=== PATIENT | male | born 1955 | race Caucasian/White ===

== ENCOUNTER → 2017-07-01 | Outpatient (CLI) | payer OTHER ==
--- NOTE | 2017-07-02 10:16 | CT ---
EXAM DESCRIPTION: Chest w/o Contrast CLINICAL HISTORY: MASS COMPARISON: None available TECHNIQUE: Chest CT was performed without IV contrast. This exam was performed according to our departmental dose-optimization program, which includes automated exposure control, adjustment of the mA and/or kV according to patient size and/or use of iterative reconstruction technique. FINDINGS: The thyroid and thoracic inlet are unremarkable. No thoracic aortic aneurysm. Limited sensitivity for detection of adenopathy due to lack of IV contrast, but no mediastinal or hilar adenopathy is seen. Surgical clips are noted in the epigastric region. Is no hiatal hernia or esophageal wall thickening. The central airways are clear. Emphysematous changes are noted. There is no airspace consolidation or lung mass. No suspicious lung nodule is identified. Visualized portions of the upper abdomen show postoperative changes but are otherwise unremarkable for noncontrast technique. No concerning bone lesion. IMPRESSION: Emphysema, but no evidence of lung mass. Electronically signed by: Jayy Patino MD 07/02/2017 10:[address] [facility]
== END | disposition home or self-care (01) ==
LOC: CT 10:35
PROVIDERS: ATTEND Nurse Practitioner
DX: R22.2 Localized swelling, mass and lump, trunk (principal)

== ENCOUNTER → 2018-03-18 | Outpatient (CLI) | payer OTHER ==
--- NOTE | 2018-03-18 19:14 | CT ---
Procedure: LOW DOSE CT CHEST LUNG CANCER SCREENING WITHOUT IV CONTRAST Exam Date: 03/18/2018. Ordering Provider: Akshat Rosenbaum Clinical Indication: LUNG CANCER SCREENING This patient meets eligibility criteria for low-dose CT lung cancer screening. Comparison: Chest CT scan without contrast 07/01/2017. Technique: Using a multislice scanner, sequential helical axial imaging was obtained in the thorax, 2.5 mm thickness, 2.5 mm separation, from the level of the thoracic inlet through the lung bases without IV contrast. A low dose protocol was utilized. CTDI: 1.76 mGy. 120. kVp. 45 mA. 2D MIP sagittal and coronal reconstructed images, 6.0 mm thickness, were obtained. This exam was performed according to our departmental dose optimization program which includes use of automated exposure control, adjustment of the mA and/or kV according to patient size and/or use of iterative reconstruction technique. FINDINGS: Lungs and large airways: Bilateral multiple emphysematous blebs in a centrilobular pattern more prevalent in the upper lung rolle decreasing toward the the base of the lungs bilaterally. Bilateral perihilar peribronchial wall cuffing with atelectasis more prevalent in the lower lobes left more than right with minimal honeycombing lung in the superior segment and medial basal segment of the left lower lobe. Parenchymal scarring in the inferior lingula. Solid nodule in the anterior costophrenic angle of the base of the right middle lobe with mean diameter 5 mm (image 122. Not well seen on the prior study which may be due to technique. Parenchymal scarring in the medial base of the right lower lobe is stable. Parenchymal scarring and pleural thickening stable in the inferior lingula. Less than 3 mm solitary calcified nodule in the inferior lingula on axial image 113. Pleura: Stable bilateral apical thickening. Also intermittent scattered bilateral thickening is unchanged. No effusion or pneumothorax. Mediastinum and alia: Limited due to noncontrast screening technique but no asymmetric or gross soft tissue masses. No calcifications. Heart and great vessels: Coronary artery calcifications. Atherosclerotic calcifications in the aortic arch and the descending thoracic aorta. Surgical clips abutting the distal esophagus above the GE junction. Chest wall, lower neck, axillae: No gross soft tissue masses. Thyroid gland not well seen. Upper abdomen: Surgical clips at the GE junction and abutting the undersurface of the stomach. 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 Surgical clips in the vicinity of the transverse colon and duodenum. Partial visualization of the pancreas. No free fluid in the peritoneal cavity. Bones: Spondylosis at multiple levels of the thoracic spine. No thoracic compression type vertebral body abnormalities. Minimal arthrosis right glenohumeral joint. IMPRESSION: 1. 5 mm nodule versus pleural scarring in the base of the right middle lobe at the anterior costophrenic angle. Not well seen on the prior study but this may be due to technique. Please see recommendations below.* 2. Centrilobular emphysema more severe in the upper lung rolle and decreasing in severity toward the bases. Stable bilateral mild/moderate bronchiectasis and stable scarring in minimal honeycombing in the left infrahilar lung. *Lung RADS category Category 2 - Nodules with a very low likelihood (less than 1%) of becoming a clinically active cancer due to size or lack of growth. Nodules: Solid or part solid nodule(s) less than 6mm, new solid nodule less than 4mm. Ground glass nodule(s) less than 20mm or unchanged or slow growing ground glass nodule 20mm or greater. Cat 3 or 4 nodule unchanged for 3 or more months. Follow-up: Continue annual screening with a Low Dose Chest CT in 12 months for re-evaluation. Electronically signed by: Gulshan Mayo MD 03/18/2018 3:21 PM CDT
== END ==
LOC: CT 13:30
PROVIDERS: ATTEND Family Medicine
DX: Z87.891 Personal history of nicotine dependence (principal)

== ENCOUNTER → 2019-04-20 | Outpatient (CLI) | payer OTHER ==
--- NOTE | 2019-04-21 14:57 | CT ---
Procedure: CT LUNG SCREENING Exam Date: 04/20/2019 Ordering Provider: Josh Guzman Clinical Indication: PERSONAL HISTORY OF TOBACCO USE smoking cessation 18 months. 40 pack years smoking. This patient meets eligibility criteria for low-dose CT lung cancer screening. Comparison: March 18, 2018 Technique: Using a multislice scanner, sequential helical axial imaging was obtained in the thorax, 2.5 mm thickness, 2.5 mm separation, from the level of the thoracic inlet through the lung bases without IV contrast. A low dose protocol was utilized for BMI less than 30: BMI: 19.2. CTDI: 1.76 mGy. 120. kVp. 45 mA. DLP 71.1 mGy-centimeters. 2D sagittal and coronal reconstructed images, 6.0 mm thickness, were obtained. This exam was performed according to our departmental dose optimization program which includes use of automated exposure control, adjustment of the mA and/or kV according to patient size and/or use of iterative reconstruction technique. Nodule measurements under 10 mm are given as mean value of 3 axes diameters. FINDINGS: Lungs and large airways: Multiple bilateral uniform blebs in the upper lobe lung parenchyma with uniform distribution almost as numerous in the bilateral lower lobes. On axial series 2 images 93-104 is a solid mass with spiculated and lobulated margins in the medial segment of the inferior right middle lobe. Extensions of the mass. The anterior and medial pleura, and the inferior medial major fissure with atelectasis. No calcifications associated with the mass. The larger mass is not present on the prior study and most likely a primary lung malignancy. The nodule seen on the prior study consistent with pleural thickening on this study. Pleural parenchymal scarring in the inferior lingula right upper lobe and bilateral lower lobes. Aminah-fissural nodule abutting the posterior right upper lobe in the superior left major fissure. New, 5 mm semisolid nodule in the upper lateral lingula subpleural location on image 83 and 84. No other new nodules. No new focal infiltrates.. Pleura and space: Increased pleural thickening medially, right middle lobe, abutting the mass. Multifocal bilateral pleural thickening including the apices. No effusion or pneumothorax. Mediastinum and alia: evaluation limited by low dose technique and lack of IV contrast. No enlarged lymph nodes in the mediastinum. Surgical clips abutting the GE junction inferior mediastinum. Heart and great vessels: Coronary artery atherosclerotic calcifications and stents. Atherosclerotic calcifications in the aorta. Chest wall, lower neck, axillae: Evaluation also limited by same factors as described above. Limited by minimal amount of fatty subcutaneous tissue. Upper abdomen: Evaluation limited by low-dose technique. No free air or fluid in the included peritoneal space. Fatty pancreas. Bariatric surgical hardware partially visualized. Included adrenal glands normal size and density. Osseous structures: Evaluation limited by low dose MIP technique. Minimal spondylosis. No lytic or blastic lesions. IMPRESSION: *Lung RADS category Category 4B - Very Suspicious - findings for which additional diagnostic testing and/or tissue sampling is recommended (greater than 15% malignancy probability). Nodules: Solid nodule(s) 15mm (1767.1 mm3) or larger at baseline, OR new or growing, and 8mm (268.1 mm3) or larger solid nodule. Part solid nodule(s) with a solid component 8 mm (268.1 mm3) or greater, OR with a new or growing 4mm (33.5 mm3) or larger solid component. Follow-up: Please return for chest CT with or without contrast, PET/CT and/or tissue sampling depending on the "probability of malignancy and comorbidities." PET/CT may be used when there is an 8-mm or greater solid component. CRITICAL COMMUNICATION: The critical value was discussed directly by phone by Dr. Mayo, with Ms. Tamika Neville, RN, MSN, Nurse Navigator for Dr. Guzman, at [facility] at approximately 1415 hours, on 04/21/2018 Electronically signed by: Gulshan Mayo MD 04/21/2019 2:55 PM CDT
== END ==
LOC: CT 10:00
PROVIDERS: ATTEND Family Medicine
DX: Z87.891 Personal history of nicotine dependence (principal); R91.1 Solitary pulmonary nodule

== ENCOUNTER → 2019-11-14 | Outpatient (CLI) | payer OTHER ==
--- NOTE | 2019-11-14 15:53 | CT ---
EXAM DESCRIPTION: Chest w/o Contrast : Computed Tomography. CLINICAL HISTORY: 64 years Male LUNG NODULE. Medial right middle lobe. Smoking cessation x 1-1/2 years. 50 pack-years cigarette smoking. COMPARISON: Low-dose CT lung cancer screening study March 2019. TECHNIQUE: Spiral-axial scans at 5 x 5 mm intervals through the lungs and thorax without IV contrast. 2.5 x 5 mm lung algorithm axial reconstructions. : Sagittal 2.0 Mm reconstructions. Total Exam DLP: 271 mGy-cm. This exam was performed according to our departmental dose-optimization program which includes automated exposure control, adjustment of the mA and/or kV according to patient size and/or use of iterative reconstruction technique; to reduce radiation dose to as low as reasonably achievable (ALARA). Nodule measurements under 10 mm are given as mean value of 3 axes diameters. FINDINGS: Lungs and large airways: Compared to the prior study, the spiculated mass in the medial aspect of the inferior right middle lobe is no longer visualized with only parenchymal scarring remaining with small extensions to the anterior and medial pleura. Bilateral multiple blebs in a centrilobular pattern more prevalent in the upper lung rolle. Posterior nodule with lobulated margins in the medial aspect of the posterior recess of the left lower lobe abutting the posterior pleura and the diaphragmatic pleura, measuring approximately 10 mm mean diameter. Axial series 4, image 120-122. Increase in pleural parenchymal scarring in the medial aspect of the right lower lobe abutting the paraspinal pleura in the medial right hemidiaphragm pleura (images 4/116-122.) Pleural spaces: Bilateral focal thickening is noted. No effusion or pneumothorax. Mediastinum and Jamee: Evaluation limited due to lack of IV contrast no enlarged lymph nodes or dominant soft tissue masses. Great vessels and Heart: Evaluation limited due to lack of IV contrast. Atherosclerotic calcifications in the aorta and coronary artery calcifications stable. Soft tissues of neck base, axillae, and chest wall: Evaluation limited due to lack of IV contrast. Negative. Upper abdomen: No free air or free fluid in the included peritoneal space. Moderate fecal matter in the included colon. Surgical clips gastroesophageal region and patellofemoral: The region along with gastrojejunal bypass also seen on the prior study. No complications. Colonic diverticulosis. Osseous structures: Spondylosis at multiple levels of the thoracic spine. Bilateral sternoclavicular and glenohumeral arthrosis. IMPRESSION: 1. Spiculated mass/density in the right middle lobe is no longer visualized and presumed to have been excised. Interval 10 mm mass density with lobulated margins medial aspect of the posterior recess of the left lower lobe. No other new nodules. Stable emphysematous changes bilaterally. Stable scarring bilaterally. 2. [facility] Best Practice guidelines utilizing lung RADS classification: CATEGORY 4A- Findings for which additional diagnostic testing and/or tissue sampling is recommended (5 - 15% malignancy probability). Nodules: 1. Solid nodule(s): 8 to < 15 mm ( 268.1 to < 1767.1 mm3) at baseline OR growing < 8 mm (< 268.1 mm3) OR new 6 to < 8 mm (113.1 to < 268.1 mm3). 2. Part solid nodule(s): 6 mm ( 113.1 mm3) with solid component 6 mm to < 8 mm ( 113.1 to < 268.1 mm3) OR with a new or growing < 4 mm (< 33.5 mm3) solid component. 3. Endobronchial nodule FOLLOW-UP: Please return for 3 month LDCT; PET/CT may be used when there is a 8 mm ( 268.1 mm3) solid component. Risk of malignancy: 515%. Estimated population prevalence: 2%. Electronically signed by: Gulshan Mayo MD 11/14/2019 3:51 PM CDT
== END ==
LOC: CT 10:24
PROVIDERS: ATTEND Family Medicine
DX: Z87.891 Personal history of nicotine dependence (principal); R91.1 Solitary pulmonary nodule

== ENCOUNTER → 2020-08-01 | Outpatient (CLI) | payer OTHER ==
--- NOTE | 2020-08-01 12:27 | CT ---
Procedure: CT LUNG W/O CONTRAST, LOW DOSE FOLLOW-UP Exam Date: August 01, 2020 Ordering Provider: Josh Guzman Clinical Indication: lung nodule and former smoker current cigarette smoker. 50 pack years. This patient meets eligibility criteria for low-dose CT lung cancer screening. Comparison: Chest CT scan without contrast October 2019. Low-dose CT lung cancer screening examination March 2019; assessment: Lung rads 4B. Technique: Using a multislice scanner, sequential helical axial imaging was obtained in the thorax, 2.5 mm thickness, 2.5 mm separation, from the level of the thoracic inlet through the lung bases without IV contrast. A low dose protocol was utilized for BMI less than 30: BMI: 20. CTDI: 1.76 mGy. 120. kVp. 45 mA. DLP 70 mGy-cm. 2D sagittal and coronal reconstructed images, 6.0 mm thickness, were obtained. This exam was performed according to our departmental dose optimization program which includes use of automated exposure control, adjustment of the mA and/or kV according to patient size and/or use of iterative reconstruction technique. Nodule measurements under 10 mm are given as mean value of 3 axes diameters. FINDINGS: Lungs and large airways: Diffuse glands in a centrilobular distribution becoming larger and more numerous in the midline and lower lobe with septal thickening and increasing lung parenchyma. The subpleural abnormality in the medial aspect of the recess of the left lower lobe is no longer present and was most likely an acute pleural process. Pleural-parenchymal scarring in the medial recess is stable. Pleural-parenchymal scarring medial aspect of the right lower lobe stable. Pleural scarring abutting the upper lobes. Scarring inferior lingula also involving the inferior left major fissure. Pleural parenchymal scarring right middle lobe. No new nodules and no masses. No acute or interval infiltrates. Pleura and space: Bilateral focal thickening with no acute process. Mediastinum and alia: evaluation limited by low dose technique and lack of IV contrast. Small lymph nodes with no dominant soft tissue mass. No interval change. Heart and great vessels: Atherosclerotic calcifications aortic arch. Minimal atherosclerotic calcification in the coronary arteries. Stable since the prior study. Chest wall, lower neck, axillae: Evaluation also limited by same factors as described above. Typical axillary and subclavian lymph nodes. No interval change. Upper abdomen: Evaluation limited by low-dose technique. Gastroesophageal surgery clips as seen previously. No free air or free fluid. Osseous structures: Evaluation limited by low dose MIP technique. Spondylosis in multiple levels of the thoracic spine. Shoulder and clavicle sternal arthrosis with no interval change from the prior study. IMPRESSION: 1. Previous abnormal finding in the left lower lobe no longer present. Diffuse emphysematous changes more severe in the mid and lower lung rolle. Bilateral pleural-parenchymal scarring. Stable since the prior study. No new abnormal nodule and no mass.. [facility] Best Practice Recommendations: please see below for Lung RADS category and FOLLOW-UP.* *Lung RADS category Category 1 - No nodule or definitely benign nodules (probability of malignancy less than 1%). Follow-up: Continue annual screening with Low Dose Chest CT in 12 months. Electronically signed by: Gulshan Mayo MD 08/01/2020 12:26 PM [facility]
== END ==
LOC: CT 10:29
PROVIDERS: ATTEND Family Medicine
DX: R91.1 Solitary pulmonary nodule (principal); J43.9 Emphysema, unspecified; J98.4 Other disorders of lung; Z87.891 Personal history of nicotine dependence